=== PATIENT | female | born 1940 | race Caucasian/White ===

== ENCOUNTER 2018-06-25 15:37 | Emergency (ER) | payer MEDICARE, BC ==
[2018-06-25] MEDS ORDERED: SODIUM CHLORIDE 0.9% FLUSH 10 ML SOL IV PRN (15:57)
[2018-06-25 16:05] LABS: BASOPHILS % (AUTO) 1 % (0-3); EOSINOPHILS % (AUTO) 1 % (0-9); HEMATOCRIT 45 % (35-47); HEMOGLOBIN 14.7 gm/dl (12.0-15.5); LYMPHOCYTES % (AUTO) 27.4 % (10-50); MEAN CORPUSCULAR HGB CONC 32.6 gm/dl (32.0-36.0); MEAN CORPUSCULAR VOLUME 89 fL (81-99); MONOCYTES % (AUTO) 8.1 % (0-12); NEUTROPHILS % (AUTO) 62.3 % (37-80)
[2018-06-25 16:11] VITALS: TEMP 97
[2018-06-25 16:19] LABS: BLOOD UREA NITROGEN 9 mg/dl (7-18); CALCIUM 9.6 mg/dl (8.5-10.1); CARBON DIOXIDE 29.7 mEq/L (21-32); CHLORIDE 102 mMol/L (98-107); CREATININE 0.83 mg/dl (0.60-1.00); GLUCOSE 113 mg/dl (74-106); POTASSIUM 3.2 mMol/L (3.5-5.1); SODIUM 139 mMol/L (136-145); TROP I < 0.017 ng/ml (0.000-0.056)
[2018-06-25 16:27] LABS: INR 0.98 (0.86-1.12)
[2018-06-25] MEDS ORDERED: FUROSEMIDE 20 MG TAB ONE ×2 (17:05→17:54)
[2018-06-25] MEDS ORDERED: FUROSEMIDE 20 MG TAB PO SCH (17:15)
[2018-06-25] MEDS ORDERED: FUROSEMIDE 20 MG TAB PO ONE (17:50)
[2018-06-25] MEDS ORDERED: HYDRALAZINE HYDROCHLORIDE 20 MG/ML SOL IV ONE (18:09)
[2018-06-25] MEDS ORDERED: HYDRALAZINE HYDROCHLORIDE 20 MG/ML SOL ONE (18:10)
[2018-06-25 19:16] VITALS: BP 145/86; PULSE 71; RESP 20; O2SAT 96
== END 2018-06-25 19:10 | disposition home or self-care (01) | DRG 69 ==
LOC: ED 15:37
DX: G45.9 Transient cerebral ischemic attack, unspecified (principal); R06.02 Shortness of breath
CPT/HCPCS: 70450; 80048; 83880; 84484; 85025; 85610; 85730; 93005; 96374; 99284; 99291; J0360; A9270-GY

== ENCOUNTER 2019-04-15 22:45 | Inpatient (IN) | payer MEDICARE, BC ==
[2019-04-15] MEDS: SODIUM CHLORIDE 0.9% FLUSH 10 ML SOL IV PRN (23:00)
[2019-04-15] MEDS ORDERED: SODIUM CHLORIDE 0.9% 1000ML 1,000 ML IV ONE (23:00)
[2019-04-15 23:11] LABS: HEMATOCRIT 44 % (35-47); HEMOGLOBIN 14.7 gm/dl (12.0-15.5); MEAN CORPUSCULAR HEMOGLOBIN 29.3 pg (27.0-32.0); MEAN CORPUSCULAR HGB CONC 33.3 gm/dl (32.0-36.0); MEAN CORPUSCULAR VOLUME 88 fL (81-99)
[2019-04-15 23:20] LABS: ALBUMIN 3.1 gm/dl (3.4-5.0); CALCIUM 10.4 mg/dl (8.5-10.1); CARBON DIOXIDE 19.7 mEq/L (21-32); CREATININE 2.09 mg/dl (0.60-1.00); INR 1.06 (0.86-1.12); TOTAL PROTEIN 7.4 gm/dl (6.4-8.2)
[2019-04-15 23:41] LABS: POTASSIUM 2.9 mMol/L (3.5-5.1)
[2019-04-15] MEDS ORDERED: LIDOCAINE HCL 1% MPF 30 SOL ONE (23:47)
[2019-04-15] MEDS ORDERED: POTASSIUM CHLORIDE 2 MEQ/ML SOL IV ONE (23:47)
[2019-04-16] MEDS ORDERED: POTASSIUM CHLORIDE 2 MEQ/ML 60 MEQ, LIDOCAINE HCL 1% MDV 2 ML in SODIUM CHLORIDE 0.9% 1... IV ONE (00:15)
[2019-04-16 00:27] LABS: BAND NEUTROPHILS % (MANUAL) 1 %; BASOPHILS % (MANUAL) 0 % (0-3); EOSINOPHILS % (MANUAL) 0 % (0-9); LYMPHOCYTES % (MANUAL) 6 % (10-50); MONOCYTES % (MANUAL) 10 % (0-12); NEUTROPHILS % (MANUAL) 83 % (37-80); NORMAL RBCS PRESENT
[2019-04-16] MEDS ORDERED: LEVOFLOXACIN 25 MG/ML SOL IV ONE (00:41)
[2019-04-16 00:44] LABS: APPEARANCE,URINE Cloudy; BILIRUBIN,URINE NEGATIVE (NEGATIVE); COLOR,URINE Yellow; GLUCOSE, URINE (UA) NEGATIVE (NEGATIVE); KETONES,URINE NEGATIVE (NEGATIVE); LEUKOCYTE ESTERASE ,URINE 2+ (NEGATIVE); NITRATE,URINE POSITIVE (NEGATIVE); OCCULT BLOOD,URINE 2+ (NEG-TRACE); PH,URINE 5.5; UROBILINOGEN,URINE 0.2 (0.2-1.0 EU)
[2019-04-16] MEDS ORDERED: LEVOFLOXACIN 25 MG/ML 750 MG in SODIUM CHLORIDE 0.9% 250 ML 150 ML IV SCH (00:45)
[2019-04-16 01:05] LABS: BACTERIA 3+ (< 1+); CRYSTALS NEGATIVE (0-3 AVE/HPF); EPITHELIAL CELLS 0-2 (SQUAMOUS); RBC,URINE 0-4 (0-3AV/HPF); WBC,URINE 60-70 (0-5AV/HPF)
[2019-04-16] MEDS: SODIUM CHLORIDE 0.9% 1000ML 1,000 ML IV ONE ×4 (03:53→11:09)
[2019-04-16] MEDS: ONDANSETRON HCL 4 MG/2 ML SOL IV PRN (04:12)
[2019-04-16] MEDS: ACETAMINOPHEN 500 MG 500 MG TAB PO PRN (04:17)
[2019-04-16] MEDS ORDERED: IBUPROFEN 600 MG TAB PO ONE (05:28)
[2019-04-16] MEDS ORDERED: IBUPROFEN 600 MG TAB ONE (05:35)
[2019-04-16] MEDS ORDERED: SODIUM CHLORIDE 0.9% 1000ML 1,000 ML IV ONE (06:00)
[2019-04-16 07:11] LABS: HEMATOCRIT 34 % (35-47); HEMOGLOBIN 11.5 gm/dl (12.0-15.5); MEAN CORPUSCULAR HEMOGLOBIN 29.9 pg (27.0-32.0); MEAN CORPUSCULAR VOLUME 88 fL (81-99)
[2019-04-16 07:16] LABS: CALCIUM 8.4 mg/dl (8.5-10.1); CARBON DIOXIDE 19.6 mEq/L (21-32); CREATININE 1.74 mg/dl (0.60-1.00); POTASSIUM 3.8 mMol/L (3.5-5.1)
[2019-04-16 07:43] LABS: BAND NEUTROPHILS % (MANUAL) 28 %; BASOPHILS % (MANUAL) 0 % (0-3); EOSINOPHILS % (MANUAL) 0 % (0-9); LYMPHOCYTES % (MANUAL) 6 % (10-50); METAMYELOCYTES%(MANUAL) 1; MONOCYTES % (MANUAL) 4 % (0-12); NEUTROPHILS % (MANUAL) 61 % (37-80); NORMAL RBCS PRESENT
[2019-04-16] MEDS ORDERED: SODIUM CHLORIDE 0.9% 1000 ML SOL IV ONE (09:30)
[2019-04-16] MEDS ORDERED: HYDROCORTISONE 1% CREAM 1 APPL CRE TOP PRN (10:45)
[2019-04-16] MEDS: DEXTROSE/SALINE 0.45/KCL 20MEQ 1,000 ML/1,000 ML SOL IV SCH ×2 (11:28→20:26)
[2019-04-16] MEDS: SODIUM CHLORIDE 0.9% FLUSH 10 ML SOL IV PRN (11:31)
[2019-04-17] MEDS: DEXTROSE/SALINE 0.45/KCL 20MEQ 1,000 ML/1,000 ML SOL IV SCH ×3 (04:34→20:17)
[2019-04-17 07:44] LABS: CALCIUM 8.5 mg/dl (8.5-10.1); CARBON DIOXIDE 19.2 mEq/L (21-32); CREATININE 1.21 mg/dl (0.60-1.00)
[2019-04-17 07:50] LABS: BASOPHILS % (AUTO) 0 % (0-3); EOSINOPHILS % (AUTO) 0 % (0-9); HEMATOCRIT 34 % (35-47); HEMOGLOBIN 11.3 gm/dl (12.0-15.5); LYMPHOCYTES % (AUTO) 5.1 % (10-50); MEAN CORPUSCULAR HGB CONC 33.4 gm/dl (32.0-36.0); MEAN CORPUSCULAR VOLUME 90 fL (81-99); MONOCYTES % (AUTO) 5.8 % (0-12); NEUTROPHILS % (AUTO) 88.3 % (37-80)
[2019-04-17] MEDS: POTASSIUM CHLORIDE 10 MEQ TER PO SCH (09:13)
[2019-04-17] MEDS: DULOXETINE HCL 30 MG CAPSULE.DR PO SCH (09:13)
[2019-04-17] MEDS: CLOPIDOGREL 75 MG TAB PO SCH (09:14)
[2019-04-17] MEDS: PRAVASTATIN SODIUM 20 MG TAB PO SCH (09:14)
[2019-04-17] MEDS: MULTIVITAMIN2 1 EA TAB PO SCH (09:15)
[2019-04-17] MEDS: ACETAMINOPHEN 500 MG 500 MG TAB PO PRN ×2 (09:17→20:17)
[2019-04-17] MEDS ORDERED: LEVOFLOXACIN 25 MG/ML SOL IV ONE (22:27)
[2019-04-17] MEDS ORDERED: SODIUM CHLORIDE 0.9% 250 ML 250 ML IV ONE (22:27)
[2019-04-17] MEDS ORDERED: LEVOFLOXACIN 25 MG/ML 750 MG in SODIUM CHLORIDE 0.9% 250 ML 150 ML IV SCH (23:00)
[2019-04-18] MEDS: ONDANSETRON HCL 4 MG/2 ML SOL IV PRN (05:47)
[2019-04-18 07:39] LABS: CALCIUM 8.8 mg/dl (8.5-10.1); CARBON DIOXIDE 22.5 mEq/L (21-32); POTASSIUM 4.4 mMol/L (3.5-5.1)
[2019-04-18] MEDS: POTASSIUM CHLORIDE 10 MEQ TER PO SCH (10:03)
[2019-04-18] MEDS: DULOXETINE HCL 30 MG CAPSULE.DR PO SCH (10:04)
[2019-04-18] MEDS: MULTIVITAMIN2 1 EA TAB PO SCH (10:04)
[2019-04-18] MEDS: CLOPIDOGREL 75 MG TAB PO SCH (10:05)
[2019-04-18] MEDS: PRAVASTATIN SODIUM 20 MG TAB PO SCH (10:05)
[2019-04-18] MEDS: SODIUM CHLORIDE 0.9% FLUSH 10 ML SOL IV PRN (11:43)
[2019-04-18] MEDS: CEFDINIR 300 MG CAP PO SCH ×2 (12:08→20:38)
[2019-04-18] MEDS: DEXTROSE/SALINE 0.45/KCL 20MEQ 1,000 ML/1,000 ML SOL IV SCH (14:37)
[2019-04-18] MEDS ORDERED: SODIUM CHLORIDE 0.9% FLUSH 10 ML SOL IV SCH (20:00)
[2019-04-18] MEDS: ACETAMINOPHEN 500 MG 500 MG TAB PO PRN (20:37)
[2019-04-19 08:28] VITALS: O2SAT 96
[2019-04-19] MEDS: DULOXETINE HCL 30 MG CAPSULE.DR PO SCH (08:32)
[2019-04-19] MEDS: POTASSIUM CHLORIDE 10 MEQ TER PO SCH (08:32)
[2019-04-19] MEDS: CLOPIDOGREL 75 MG TAB PO SCH (08:33)
[2019-04-19] MEDS: CEFDINIR 300 MG CAP PO SCH (08:35)
[2019-04-19] MEDS: MULTIVITAMIN2 1 EA TAB PO SCH (08:35)
[2019-04-19] MEDS: PRAVASTATIN SODIUM 20 MG TAB PO SCH (08:35)
[2019-04-19 09:42] VITALS: BP 139/86; PULSE 121; RESP 20; TEMP 97.4
== END 2019-04-19 13:45 | disposition home or self-care (01) | DRG 872 ==
LOC: ED 22:45 → ACUTE CARE 04-16 01:00
PROVIDERS: ADMIT Family Medicine; ATTEND Family Medicine
DX: A41.9 Sepsis, unspecified organism (principal); R11.2 Nausea with vomiting, unspecified; N30.00 Acute cystitis without hematuria; R47.81 Slurred speech; R41.0 Disorientation, unspecified; R40.2362 Coma scale, best motor response, obeys commands, at arrival to emergency department; R40.2142 Coma scale, eyes open, spontaneous, at arrival to emergency department; R40.2252 Coma scale, best verbal response, oriented, at arrival to emergency department; R29.703 NIHSS score 3; R19.7 Diarrhea, unspecified; I95.89 Other hypotension
CPT/HCPCS: 36415; 51798; 70450; 70544; 70551; 71046; 80048; 80053; 81001; 85007; 85025; 85027; 85610; 87040; 87077; 87088; 87186; 87205; 93012; 94760; 96365; 96366; 99070; 99223; 99291; J1956; J2405; J3480; A9270-GY; J2001

== ENCOUNTER 2019-07-06 11:06 | Day surgery (SDC) | payer MEDICARE, BC | END 2019-07-06 13:33 | disposition home or self-care (01) | LOC: SURG 11:06 ==